=== PATIENT | male | born 1950 ===

== ENCOUNTER 2018-04-23 09:49 | Outpatient (CLI) | payer MEDICARE ==
--- NOTE | 2018-04-30 12:21 | Fluoroscopy Report ---
MODIFIED BARIUM SWALLOW History: dysphagia. Findings: Video radiography was provided by the radiologist for speech therapy to assess the swallowing mechanism. 1 fluoroscopic image was captured. Impression: Successful modified barium swallow.
== END 2018-04-23 09:50 | disposition home or self-care (01) ==
LOC: PT 09:49
PROVIDERS: ATTEND Otolaryngology
DX: R49.9 Unspecified voice and resonance disorder (principal); E11.9 Type 2 diabetes mellitus without complications; I10 Essential (primary) hypertension; R13.10 Dysphagia, unspecified; J44.9 Chronic obstructive pulmonary disease, unspecified
CPT/HCPCS: 74230